=== PATIENT | male | born 1950 | race Caucasian/White ===

== ENCOUNTER → 2017-03-04 | Outpatient (CLI) | payer BC | LOC: KOH-I 15:15 | DX: M84.474A Pathological fracture, right foot, initial encounter for fracture (principal); M85.88 Other specified disorders of bone density and structure, other site; R60.0 Localized edema | CPT/HCPCS: 73718 ==

== ENCOUNTER → 2020-09-20 | Outpatient (CLI) | payer MEDICARE, OTHER | LOC: SLEEP-COR 15:37 | DX: G47.33 Obstructive sleep apnea (adult) (pediatric) (principal); R00.2 Palpitations; I10 Essential (primary) hypertension; R00.1 Bradycardia, unspecified; F41.9 Anxiety disorder, unspecified | CPT/HCPCS: 95810 ==